=== PATIENT | male | born 1975 | race Caucasian/White ===

== ENCOUNTER 2021-01-24 20:26 | Inpatient (IN) | payer MEDICARE, OTHER ==
[2021-01-24] MEDS ORDERED: SODIUM CHLORIDE 0.9% 500 ML 500 ML IV STA (21:41)
--- NOTE | 2021-01-24 22:44 | US ---
EXAMINATION TYPE: US venous doppler duplex [facility] DATE OF EXAM: 01/24/2021 10:13 PM COMPARISON: NONE CLINICAL HISTORY: possible dvt. pelvic fracture 11/19. pain and edema bilateral legs, worse on the le ft SIDE PERFORMED: Bilateral TECHNIQUE: The lower extremity deep venous system is examined utilizing real time linear array sonog cecilia with graded compression, doppler sonography and color-flow sonography. VESSELS IMAGED: Common Femoral Vein Deep Femoral Vein Greater Saphenous Vein * Femoral Vein Popliteal Vein Small Saphenous Vein * Proximal Calf Veins (* superficial vessels) Right Leg: no evidence of DVT Left Leg: no evidence of DVT IMPRESSION: No evidence of deep vein thrombosis in both legs.
[2021-01-25] MEDS ORDERED: MORPHINE SULFATE 4 MG/ML SYRINGE IV STA (00:09)
[2021-01-25] MEDS ORDERED: NALOXONE 0.4 MG/ML 1 ML VIAL IV PRN (05:19)
[2021-01-25] MEDS: HYDROcodone/APAP 5-325MG 1 EACH TAB PO PRN ×2 (05:40→14:20)
[2021-01-25] MEDS: SODIUM CHLORIDE 0.9% 1,000 ML IV SCH (05:43)
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
[2021-01-25] MEDS: FAMOTIDINE 20 MG TAB PO SCH ×2 (09:18→20:28)
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
--- NOTE | 2021-01-25 12:07 | XR ---
Pelvis. HISTORY: Follow-up fractures. COMPARISON: None. TECHNIQUE: 2 views of the pelvis were obtained. FINDINGS: There are fractures of the left superior and inferior pubic rami. Evaluation of the sacrum and iliac bones is limited due to overlying bowel content diffuse osteopenia . The hips are symmetric bilaterally. There are mild degenerative changes but no fractures or dislocati ons.. IMPRESSION: Left pubic rami fractures.
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
[2021-01-25] MEDS: HEPARIN SODIUM,PORCINE/PF 5,000 UNIT/0.5 ML SYRINGE SQ SCH (14:20)
[2021-01-25] MEDS ORDERED: NON FORMULARY DRUG (Linaclotide [Linzess] 145 MCG Capsule) PO PRN (16:30)
[2021-01-25] MEDS ORDERED: HYDROcodone/APAP 7.5-325MG 1 EACH TAB PO PRN (16:30)
[2021-01-25] MEDS: CYCLOBENZAPRINE 10 MG TAB PO SCH (20:28)
[2021-01-26] MEDS: SODIUM CHLORIDE 0.9% 1,000 ML IV SCH ×2 (02:06→09:33)
[2021-01-26] MEDS: HEPARIN SODIUM,PORCINE/PF 5,000 UNIT/0.5 ML SYRINGE SQ SCH ×3 (02:10→16:53)
[2021-01-26 07:12] LABS: ALT 14 U/L (4-49); African American GFR (CKD) >90 (>60 ml/min/1.73 sqM); Albumin 2.9 g/dL (3.5-5.0); Anion Gap 9 mmol/L; Blood Urea Nitrogen 13 mg/dL (9-20); Calcium 8.6 mg/dL (8.4-10.2); Carbon Dioxide 21 mmol/L (22-30); Chloride 107 mmol/L (98-107); Glucose 98 mg/dL (74-99); Non-African American GFR(CKD) >90 (>60 ml/min/1.73 sqM); Sodium 137 mmol/L (137-145); Total Bilirubin 0.4 mg/dL (0.2-1.3); Total Protein 5.9 g/dL (6.3-8.2)
[2021-01-26 07:19] LABS: AST 33 U/L (17-59); Alkaline Phosphatase 106 U/L (38-126); Potassium 4.3 mmol/L (3.5-5.1)
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
[2021-01-26] MEDS: CYCLOBENZAPRINE 10 MG TAB PO SCH ×2 (08:40→21:06)
[2021-01-26] MEDS: FAMOTIDINE 20 MG TAB PO SCH ×2 (08:40→21:06)
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
[2021-01-26 11:45] LABS: Basophils # (A) 0.03 X 10*3/uL (0.00-0.10); Basophils % (A) 0.8 %; Eosinophils # (A) 0.29 X 10*3/uL (0.04-0.35); Eosinophils % (A) 7.8 %; HCT 35.9 % (39.6-50.0); HGB 10.4 g/dL (13.0-17.0); Lymphocytes # (A) 0.95 X 10*3/uL (0.90-5.00); Lymphocytes % (A) 25.6 %; MCH 22.6 pg (27.0-32.0); MCV 77.9 fL (80.0-97.0); Mean Platelet Volume 9.9 fL (9.5-12.2); Monocytes # (A) 0.46 X 10*3/uL (0.20-1.00); Monocytes % (A) 12.4 %; Neutrophils # (A) 1.97 X 10*3/uL (1.80-7.70); Neutrophils % (A) 53.1 %; Platelet Count 329 X 10*3/uL (140-440); RBC 4.61 X 10*6/uL (4.40-5.60); RDW 16.5 % (11.5-14.5); WBC 3.71 X 10*3/uL (4.50-10.00)
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
[2021-01-26 14:20] VITALS: BMI 22.4
--- NOTE | 2021-01-26 17:00 | NM ---
EXAMINATION TYPE: NM bone 3 phase DATE OF EXAM: 01/26/2021 COMPARISON: NONE HISTORY: Triple phase bone scintigraphy was performed following the injection of 21.1 mCi Tc 99m MDP. Immedia te images and 3 hours post injection images acquired. FINDINGS: There is slight asymmetric increased uptake in the right ischium compared to the left. The asymmetry however is less than I would expect for acute osteomyelitis. This could relate to some chronic osteom yelitis. There is abnormal increased uptake in the intertrochanteric right femur. The pelvis CT scan of 021 is reviewed and I see no obvious fracture. There is moderate increased uptake in both sacroiliac joints in a symmetric fashion and consistent with healing sacral fractures are evident on the recent CT scan.. IMPRESSION: I do not see evidence for acute osteomyelitis of the right ischium. There could be very minimal chron ic osteomyelitis of the right ischium. Increased uptake in the intertrochanteric left femur is suspicious for an occult fracture. Osteomyeli tis not excluded. Bilateral healing fractures of the sacrum also evident on the recent CT scan.
[2021-01-27] MEDS: HYDROcodone/APAP 5-325MG 1 EACH TAB PO PRN (00:30)
[2021-01-27] MEDS: HEPARIN SODIUM,PORCINE/PF 5,000 UNIT/0.5 ML SYRINGE SQ SCH ×3 (00:31→16:11)
[2021-01-27] MEDS: SODIUM CHLORIDE 0.9% 1,000 ML IV SCH ×2 (00:33→14:27)
--- NOTE | 2021-01-27 06:03 | PN ---
PROGRESS NOTE DATE OF SERVICE: 01/26/2021 REASON FOR FOLLOWUP: 1. Right ischial pressure ulcer. 2. Possible UTI. INTERVAL HISTORY: Patient is afebrile, has been breathing comfortably. Complaining of pain to the lower extremity. No chest pain, shortness of breath or cough. No abdominal pain. No diarrhea. PHYSICAL EXAMINATION: Blood pressure 154/99 with a pulse of 96. Temperature 98.1. He is 100% on room air. General description is a middle-aged male lying in bed in no distress. Respiratory system: Unlabored breathing, clear to auscultation anteriorly. Heart S1, S2. Regular rate and rhythm. Abdomen soft, no tenderness. LABS: Hemoglobin is 10.4, white count 3.71, creatinine 0.73, negative. Bone scan negative for any osteomyelitis. DIAGNOSTIC IMPRESSION AND PLAN: 1. Patient with chronic nonhealing wound to the right ischial area. CT done in the outpatient facility raises the possibility of osteomyelitis. However the bone scan came back negative. Cultures are currently pending. Local care to continue with wet-to-dry dressing. Will benefit from a wound VAC in outpatient setting. 2. Possible urinary tract infection on the basis of the outside facility evaluation, covered with Rocephin. We will try to obtain cultures. MMODL / IJN: [id number] /
[2021-01-27 08:56] LABS: HCT 31.1 % (39.6-50.0); HGB 9.3 g/dL (13.0-17.0); MCH 23.1 pg (27.0-32.0); MCHC 29.9 g/dL (32.0-37.0); MCV 77.4 fL (80.0-97.0); Mean Platelet Volume 9.8 fL (9.5-12.2); Platelet Count 326 X 10*3/uL (140-440); RBC 4.02 X 10*6/uL (4.40-5.60); RDW 16.3 % (11.5-14.5); WBC 4.53 X 10*3/uL (4.50-10.00)
[2021-01-27] MEDS: FAMOTIDINE 20 MG TAB PO SCH (08:57)
[2021-01-27] MEDS: CYCLOBENZAPRINE 10 MG TAB PO SCH (08:57)
[2021-01-27 09:17] VITALS: RESP 18
[2021-01-27 09:28] LABS: Basophils # (A) 0.04 X 10*3/uL (0.00-0.10); Basophils % (A) 0.9 %; Eosinophils # (A) 0.32 X 10*3/uL (0.04-0.35); Eosinophils % (A) 7.1 %; Lymphocytes # (A) 1.11 X 10*3/uL (0.90-5.00); Lymphocytes % (A) 24.5 %; Monocytes # (A) 0.58 X 10*3/uL (0.20-1.00); Monocytes % (A) 12.8 %; Neutrophils # (A) 2.47 X 10*3/uL (1.80-7.70); Neutrophils % (A) 54.5 %
[2021-01-27] MEDS ORDERED: CEFDINIR 300 MG CAP PO SCH (11:30)
[2021-01-27 12:35] LABS: Erythrocyte Sedimentation Rate 45 mm/Hr (0-15)
[2021-01-27 14:33] LABS: Appearance,Urine Cloudy (Clear); Bacteria,Urine Many /hpf; Bilirubin,Urine Negative (Negative); Blood,Urine Trace (Negative); Color,Urine Light Yellow; Glucose,Urine (UA) Negative (Negative); Ketones,Urine Negative (Negative); Leukocyte Esterase,Urine Large (Negative); Mucus,Urine Rare /hpf; Nitrite,Urine Negative (Negative); PH, Urine 5.5 (5.0-8.0); Protein,Urine Negative (Negative); RBC,Urine 19 /hpf (0-5); Squamous Epithelial Cell,Urine 1 /hpf (0-4); Urobilinogen,Urine <2.0 mg/dL (<2.0); WBC,Urine >182 /hpf (0-5)
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
[2021-01-27 18:20] VITALS: BP 127/78; PULSE 113; TEMP 97.7
--- NOTE | 2021-01-27 18:40 | PN ---
PROGRESS NOTE DATE OF SERVICE: 01/27/2021 REASON FOR FOLLOWUP: 1. Right ischial wound. 2. Possible UTI. INTERVAL HISTORY: Patient is afebrile. The patient is feeling better. Breathing comfortably. Patient denies having any chest pain. No shortness of breath or cough. No abdominal pain or diarrhea. PHYSICAL EXAMINATION: Blood pressure is 119/79, pulse of 105. Temperature 98.3. He is 98% on room air. General description is a middle-aged male lying in bed in no distress. Respiratory system: Unlabored breathing, clear to auscultation anteriorly. Heart S1, S2. Regular rate and rhythm. Abdomen: Soft. No tenderness. LABS: Hemoglobin is 9.1, white count 4.5. Repeat urine is positive. Cultures from the right ischial wound has been negative. DIAGNOSTIC IMPRESSION AND PLAN: 1. Patient with chronic nonhealing wound, pressure ulcer to the right ischium area. There was abnormal CT at the outside facility however the bone scan was negative and culture negative. Hence, recommend local wound care. May benefit from wound VAC in outpatient setting. 2. Patient with possible urinary tract infection. Urine is positive. Has lost his IV. Antibiotic in the form of Omnicef and Ceftin and close outpatient followup. MMODL / IJN: [id number] /
== END 2021-01-27 18:53 | disposition home or self-care (01) | DRG 689 ==
LOC: EC 20:26 → 4SSUR 01-25 05:19 → OBSVTOIN 01-26 14:02
PROVIDERS: ADMIT Internal Medicine; ATTEND Internal Medicine
DX: N39.0 Urinary tract infection, site not specified (principal); L89.313 Pressure ulcer of right buttock, stage 3; G82.20 Paraplegia, unspecified; S32.592D Other specified fracture of left pubis, subsequent encounter for fracture with routine healing; Z20.822 Contact with and (suspected) exposure to COVID-19; F17.210 Nicotine dependence, cigarettes, uncomplicated; R33.8 Other retention of urine; F32.9 Major depressive disorder, single episode, unspecified; M24.551 Contracture, right hip; M24.552 Contracture, left hip; M24.561 Contracture, right knee; M24.562 Contracture, left knee; Z79.899 Other long term (current) drug therapy; V89.2XXA Person injured in unspecified motor-vehicle accident, traffic, initial encounter; Y92.410 Unspecified street and highway as the place of occurrence of the external cause; W34.00XS Accidental discharge from unspecified firearms or gun, sequela; Z88.8 Allergy status to other drugs, medicaments and biological substances; Z91.040 Latex allergy status
CPT/HCPCS: 72170; 78315; 80053; 81001; 85025; 85652; 86140; 87070; 87075; 87086; 87205; 87635; 93970; 96374; 99285